=== PATIENT | female | born 1990 | race Caucasian/White ===

== ENCOUNTER 2016-11-26 11:27 | Emergency (ER) | payer SELFPAY ==
[2016-11-26] MEDS ORDERED: Sodium Chloride 0.9% 1,000 ML IV ONE (11:40)
[2016-11-26] MEDS ORDERED: Ondansetron 4 MG/2 ML SDV IVPUSH ONE (11:40)
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
[2016-11-26 12:27] LABS: CHLORIDE,CL 108 mmol/L (98-110); SODIUM,NA 140 mmol/L (136-146)
[2016-11-26 13:21] VITALS: BP 113/59
== END 2016-11-26 13:17 | disposition home or self-care (01) ==
LOC: MW.ED 11:27
DX: O21.9 Vomiting of pregnancy, unspecified (principal); Z3A.13 13 weeks gestation of pregnancy
CPT/HCPCS: 36415; 80053; 85025; 96361; 96374; 99284; J2405; J7040

== ENCOUNTER 2017-05-20 00:10 | Inpatient (IN) | payer MEDICAID ==
[2017-05-20] MEDS ORDERED: Methylergonovine 0.2 MG/1 ML Amp IM PRN (00:52)
[2017-05-20] MEDS ORDERED: Water For Irrigation,Sterile 1,000 ML Container IRR PRN (00:52)
[2017-05-20] MEDS ORDERED: Misoprostol 200 MCG Tab PO PRN (00:52)
[2017-05-20] MEDS ORDERED: Sodium Chloride 0.9% 10 ML Syringe FLUSH PRN (00:52)
[2017-05-20] MEDS ORDERED: Sodium Chloride 0.9% 2.5 ML Syringe FLUSH PRN (00:52)
[2017-05-20] MEDS ORDERED: Butorphanol 1 MG/ML SDV IVPUSH PRN (00:52)
[2017-05-20] MEDS ORDERED: Lidocaine 1% 50 ML MDV INJECT PRN (00:52)
[2017-05-20] MEDS ORDERED: Carboprost Tromethamine 250 MCG/1 ML Amp IM PRN (00:52)
[2017-05-20] MEDS ORDERED: Nalbuphine 10 MG/1 ML Vial IVPUSH PRN (00:52)
[2017-05-20] MEDS ORDERED: Oxytocin/0.9 % Sodium Chloride 30 UNIT/500 ML BAG IV SCH (01:00)
[2017-05-20] MEDS: Lactated Ringers 1,000 ML IV SCH ×3 (01:10→05:00)
[2017-05-20] MEDS ORDERED: fentaNYL 100 MCG/2 ML SDV ONE (01:40)
[2017-05-20] MEDS ORDERED: Ropivacaine HCl/PF 100 ML ONE (01:40)
[2017-05-20] MEDS ORDERED: Ropivacaine 0.2% 2 MG/ML 20 ML SDV ONE (01:40)
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
--- NOTE | 2017-05-20 03:29 | PCM.SN ---
- Free Text/Narrative Note: Requested fpr labor Epidural. . Previous epidurals without problems. History of significant spinal fusion with hardware. Currently anemic @ 8.0. Fluid bolus given. Procedure discussed. Understands risks benefits and problems. Dilated 6-7 cm. Discussed possible lack of effectiveness. Accepts. Procedure without issues. Block level ~ T8. Excellent pain control. 8cc/hr 6cc q10 bolus 24cc/hr max, Naropin 0.2% No problems 45 minutes post.
[2017-05-20] MEDS ORDERED: Ondansetron 4 MG/2 ML SDV IVPUSH PRN (06:36)
[2017-05-20] MEDS ORDERED: Docusate Sodium 100 MG Cap PO PRN (06:44)
[2017-05-20] MEDS ORDERED: Benzocaine/Menthol 20%-0.5% Spray 78 GM Cannister TOP PRN (06:44)
[2017-05-20] MEDS ORDERED: Bisacodyl 10 MG Supp RECTAL PRN (06:44)
[2017-05-20] MEDS ORDERED: Witch Hazel Medicated Pads 40/Jar TOP PRN (06:44)
[2017-05-20] MEDS ORDERED: Lanolin 100% Cream 7 GM Tube TOP PRN (06:44)
[2017-05-20] MEDS ORDERED: Ibuprofen 400 MG Tab PO PRN (06:44)
[2017-05-20] MEDS ORDERED: Acetaminophen 500 MG Tab PO PRN ×2 (06:44)
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
--- NOTE | 2017-05-20 09:30 | PCM48HPAN ---
Post Anesthesia Note - EVALUATION WITHIN 48HRS OF ANESTHETIC Vital Signs in Normal Range: Yes Patient Participated in Evaluation: Yes Respiratory Function Stable: Yes Airway Patent: Yes Cardiovascular Function Stable: Yes Hydration Status Stable: Yes Pain Control Satisfactory: Yes (Block more one sided.) Nausea and Vomiting Control Satisfactory: No Mental Status Recovered: Yes - COMMENTS/OBSERVATIONS Free Text/Narrative:: Block more one sided. Patient tolerated well. No problems post.
[2017-05-20] MEDS: Ibuprofen 800 MG Tab PO PRN (10:03)
[2017-05-20] MEDS: oxyCODONE 5 MG Tab PO PRN (20:39)
[2017-05-21] MEDS: oxyCODONE 5 MG Tab PO PRN ×3 (00:49→13:35)
--- NOTE | 2017-05-21 07:57 | PCM.PNPP ---
- General Info Date of Service: 05/21/17 Subjective Update: Patient is doing well overall--ambulating, voiding, lochia is minimal. Bottlefeeding. Would like to go home today. Functional Status: Reports: Pain Controlled, Tolerating Diet, Ambulating, Urinating - Review of Systems General: Denies: Fever, Weakness Cardiovascular: Denies: Palpitations, Lightheadedness Genitourinary: Denies: Flank Pain Psychiatric: Reports: No Symptoms - General Info Date of Service: 05/21/17 - Patient Data Vital Signs - Most Recent: Last Vital Signs Temp 36.2 C 05/21/17 04:17 Pulse 77 05/21/17 04:17 Resp 14 05/21/17 04:17 BP 106/51 L 05/21/17 04:17 Pulse Ox 96 05/21/17 04:17 Weight - Most Recent: 61.235 kg Lab Results - Last 24 Hours: Laboratory Results - last 24 hr 05/20/17 Range/Units 14:52 Hgb 8.1 L (12.0-16.0) g/dL Hct 26.9 L (36.0-46.0) % Med Orders - Current: Current Medications Acetaminophen (Tylenol Extra Strength) 500 mg PO Q4H PRN PRN Reason: Pain Acetaminophen (Tylenol Extra Strength) 1,000 mg PO Q4H PRN PRN Reason: Pain Benzocaine/Menthol (Dermoplast Pain Relief 20%-0.5% [place]) 78 gm TOP ASDIRECTED PRN PRN Reason: Perineal Comfort Measure Last Admin: 05/20/17 10:03 Dose: 1 canister Bisacodyl (Dulcolax) 10 mg RECTAL .ONCE PRN PRN Reason: Constipation Carboprost Tromethamine (Hemabate Ds) 250 mcg IM ASDIRECTED PRN PRN Reason: Post Hemorrhage Docusate Sodium (Colace) 100 mg PO BID PRN PRN Reason: Constipation Emollient Ointment (Lansinoh Hpa) 0 gm TOP ASDIRECTED PRN PRN Reason: Sore Nipples Last Admin: 05/20/17 10:02 Dose: 1 tube Lactated Ringer's (Ringers, Lactated) 1,000 mls @ 150 mls/hr IV ASDIRECTED SADI Last Admin: 05/20/17 05:00 Dose: 150 mls/hr Oxytocin/Sodium Chloride (Oxytocin 30 Unit/500 Ml-Ns) 30 unit in 500 mls @ 999 mls/hr IV TITRATE SADI Last Admin: 05/20/17 06:16 Dose: 999 mls/hr Ibuprofen (Motrin) 400 mg PO Q4H PRN PRN Reason: Pain Ibuprofen (Motrin) 800 mg PO Q6H PRN PRN Reason: Pain Last Admin: 05/20/17 10:03 Dose: 800 mg Methylergonovine Maleate (Methergine) 0.2 mg IM ASDIRECTED PRN PRN Reason: Post Hemorrhage Misoprostol (Cytotec) 200 mcg PO .ONCE PRN PRN Reason: Post Hemorrhage Ondansetron HCl (Zofran) 4 mg IVPUSH Q6H PRN PRN Reason: Nausea/Vomiting Last Admin: 05/20/17 06:50 Dose: 4 mg Oxycodone HCl (Oxycodone) 5 mg PO Q2H PRN PRN Reason: Pain Last Admin: 05/21/17 00:49 Dose: 5 mg Sodium Chloride (Saline Flush) 2.5 ml FLUSH ASDIRECTED PRN PRN Reason: Keep Vein Open Witch Georgette (Tucks) 1 pad TOP ASDIRECTED PRN PRN Reason: comfort care Last Admin: 05/20/17 10:02 Dose: 1 tub Discontinued Medications Butorphanol Tartrate (Stadol) 1 mg IVPUSH Q1H PRN PRN Reason: Pain Fentanyl (Sublimaze) Confirm Administered Dose 100 mcg .ROUTE .STK-MED ONE Stop: 05/20/17 01:41 Last Admin: 05/20/17 09:28 Dose: Not Given Ropivacaine (Naropin 0.2%) Confirm Administered Dose 100 mls @ as directed .ROUTE .STK-MED ONE Stop: 05/20/17 01:41 Last Admin: 05/20/17 09:28 Dose: Not Given Lidocaine HCl (Xylocaine 1%) 50 ml INJECT .ONCE PRN PRN Reason: Laceration repair Nalbuphine HCl (Nubain) 10 mg IVPUSH Q1H PRN PRN Reason: Pain (severe 7-10) Ropivacaine (Naropin 0.2%) Confirm Administered Dose 20 ml .ROUTE .STK-MED ONE Stop: 05/20/17 01:41 Last Admin: 05/20/17 09:28 Dose: Not Given Sodium Chloride (Saline Flush) 10 ml FLUSH ASDIRECTED PRN PRN Reason: Keep Vein Open Sterile Water (Sterile Water For Irrigation) 1,000 ml IRR ASDIRECTED PRN PRN Reason: delivery - Infant Interaction Support Person: Friend - Recovery Exam Fundal Tone: Firm Fundal Level: At Umbilicus Fundal Placement: Midline Lochia Amount: Scant Lochia Color: Rubra/Red Perineum Description: Intact, Minimal Bruising/Swelling Bladder Status: Voiding - Exam General: Alert, Oriented Lungs: Normal Respiratory Effort Cardiovascular: Regular Rate, Regular Rhythm GI/Abdominal Exam: Soft, Non-Tender Extremities: Normal Inspection Skin: Warm, Dry Psy/Mental Status: Normal Affect - Problem List & Annotations (1) (spontaneous vaginal delivery) SNOMED Code(s): 30670459 Code(s): O80 - ENCOUNTER FOR FULL-TERM UNCOMPLICATED DELIVERY Status: Acute Priority: Low Current Visit: No - Problem List Review Problem List Initiated/Reviewed/Updated: Yes - Assessment Assessment:: PPD 1 status post - Plan Plan:: Discharge to home today. Discharge instructions reviewed. Follow up at [facility] in 6 weeks. Infection and bleeding warnings reviewed.
[2017-05-21] MEDS: Ibuprofen 800 MG Tab PO PRN (09:35)
[2017-05-21 11:52] VITALS: BP 123/78
== END 2017-05-21 14:45 | disposition home or self-care (01) | DRG 775 ==
LOC: MW.OBCHECK 00:10 → MW.OB 00:14 → MW.OBCHECK 00:52 → OBSVTOIN 06:14 → MW.OB 11:07
PROVIDERS: ADMIT Obstetrics & Gynecology; ATTEND Obstetrics & Gynecology
PROC: 10E0XZZ Delivery of Products of Conception, External Approach (ICD-10-PCS; principal; 2017-05-20)
DX: O80 Encounter for full-term uncomplicated delivery (principal); Z3A.39 39 weeks gestation of pregnancy; Z37.0 Single live birth
CPT/HCPCS: 01967; 51702; 59025; 59409; 84112; 85014; 85018; 85027; 86850; 86900; 86901; A9270-GY; J2405; J2590; J7120

== ENCOUNTER 2018-09-18 09:04 | Emergency (ER) | payer MEDICAID ==
[2018-09-18] MEDS ORDERED: Ketorolac 60 MG/2 ML SDV IM ONE (09:30)
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
--- NOTE | 2018-09-18 10:10 | CR ---
EXAMINATION: Cervical spine HISTORY: Pain COMPARISON: 02/26/2018 TECHNIQUE: AP and lateral views FINDINGS: Mild straightening of the normal cervical lordosis likely positional. The vertebral body heights and disc spaces appear well-maintained. There is no fracture or acute osseous or metallic. Bone mineralization is normal. Prevertebral soft tissues are unremarkable. IMPRESSION: Grossly unremarkable cervical spine.
[2018-09-18 16:12] VITALS: BP 113/65
== END 2018-09-18 10:52 | disposition home or self-care (01) ==
LOC: MW.ED 09:04
DX: M54.2 Cervicalgia (principal); M54.9 Dorsalgia, unspecified; G89.29 Other chronic pain
CPT/HCPCS: 72040; 96372; 99283; J1885

== ENCOUNTER 2019-07-19 20:48 | Inpatient (IN) | payer MEDICAID ==
[2019-07-19] MEDS ORDERED: Sodium Chloride 0.9% 2.5 ML Syringe FLUSH PRN (21:14)
[2019-07-19] MEDS ORDERED: Carboprost Tromethamine 250 MCG/1 ML Amp IM PRN (21:14)
[2019-07-19] MEDS ORDERED: Methylergonovine 0.2 MG/1 ML Amp IM PRN (21:14)
[2019-07-19] MEDS ORDERED: Nalbuphine 10 MG/1 ML Vial IVPUSH PRN (21:14)
[2019-07-19] MEDS ORDERED: Sodium Chloride 0.9% 10 ML Syringe FLUSH PRN (21:14)
[2019-07-19] MEDS ORDERED: Lidocaine 1% 50 ML MDV INJECT PRN (21:14)
[2019-07-19] MEDS ORDERED: Water For Irrigation,Sterile 1,000 ML Container IRR PRN (21:14)
[2019-07-19] MEDS ORDERED: Butorphanol 1 MG/ML SDV IVPUSH PRN (21:14)
[2019-07-19] MEDS ORDERED: Misoprostol 200 MCG Tab PO PRN (21:14)
[2019-07-19] MEDS ORDERED: Sodium Chloride 0.9% 10 ML SDV IV PRN (21:14)
[2019-07-19] MEDS ORDERED: Tranexamic Acid 1,000 MG in Sodium Chloride 0.9% 100 ML IV PRN (21:14)
[2019-07-19] MEDS ORDERED: Oxytocin/0.9 % Sodium Chloride 30 UNIT/500 ML BAG IV SCH (21:15)
[2019-07-19] MEDS ORDERED: Lactated Ringers 1,000 ML IV SCH (21:15)
[2019-07-19] MEDS ORDERED: Bupivicaine/fentaNYL/NS 250 ML ONE (22:04)
[2019-07-19] MEDS ORDERED: fentaNYL 100 MCG/2 ML SDV ONE (22:05)
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
[2019-07-20] MEDS ORDERED: Ondansetron 4 MG/2 ML SDV IVPUSH PRN (00:16)
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
--- NOTE | 2019-07-20 02:12 | PCM.DEL ---
L & D Note - General Info Date of Service: 07/20/19 Mother's Due Date: 08/05/18 - Delivery Note Labor: Spontaneous Delivery Outcome: Livebirth Infant Delivery Method: Spontaneous Vaginal Delivery-Single Delivery Mode: Spontaneous Presentation: Vertex Nuchal Cord: None Anesthesia Type: Epidural Amniotic Fluid Description: Clear Episiotomy Type: None Laceration: None Placenta: Intact, Spontaneous Cord: 3 Vessels Score 1 min: 8 Score 5 min: 9 Second Stage Interventions: Reports: Pushing, Pulls Own Legs Back Delivery Comments (Free Text/Narrative):: of viable male, Head delivered with good pushing, shoulder and left arm followed easily. with spont cry placed on mothers abd with RN at for evaluation. Delayed cord blood. Pitocin to IVF. Cord clamped and cut. Cord blood collected. Placenta delivered grossly intact. Inspection noted intact perineum. EBL 200cc. APGARS 8/9, Wt: 6lb 11oz. Stable bonding well. - General Info Date of Service: 07/20/19 Admission Dx/Problem (Free Text): Patient Status Order with Admit Dx/Problem 07/19/19 21:14 Patient Status [ADT] Routine Admission Diagnosis/Problem Admission Diagnosis/Problem 07/20/19 01:57 29yo EDC 08/05/2018 37 5/7wks, A+, RI, GBS neg. Comes in active labor Functional Status: Reports: Pain Controlled - Review of Systems General: Reports: No Symptoms HEENT: Reports: No Symptoms Pulmonary: Reports: No Symptoms Cardiovascular: Reports: No Symptoms Gastrointestinal: Reports: No Symptoms Genitourinary: Reports: No Symptoms Musculoskeletal: Reports: No Symptoms Skin: Reports: No Symptoms Neurological: Reports: No Symptoms Psychiatric: Reports: No Symptoms - Patient Data Weight - Most Recent: 60.781 kg Lab Results Last 24 Hours: Laboratory Results - last 24 hr 07/19/19 07/19/19 Range/Units 21:21 21:21 WBC 7.04 (4.0-11.0) K/uL RBC 2.93 L (4.30-5.90) M/uL Hgb 7.4 L (12.0-16.0) g/dL Hct 24.9 L (36.0-46.0) % MCV 85.0 (80.0-98.0) fL MCH 25.3 L (27.0-32.0) pg MCHC 29.7 L (31.0-37.0) g/dL RDW Std Deviation 51.0 (28.0-62.0) fl RDW Coeff of Kelby 17 H (11.0-15.0) % Plt Count 178 (150-400) K/uL MPV 10.10 (7.40-12.00) fL Nucleated RBC % 1.2 /100WBC Nucleated RBCs # 0 K/uL Blood Type A POSITIVE Antibody Screen NEGATIVE Med Orders - Current: Current Medications Butorphanol Tartrate (Stadol) 1 mg IVPUSH Q1H PRN PRN Reason: Pain Carboprost Tromethamine (Hemabate Ds) 250 mcg IM ASDIRECTED PRN PRN Reason: Post Hemorrhage Lactated Ringer's (Ringers, Lactated) 1,000 mls @ 150 mls/hr IV ASDIRECTED SADI Last Admin: 07/19/19 21:24 Dose: 150 mls/hr Oxytocin/Sodium Chloride (Oxytocin 30 Unit/500 Ml-Ns) 30 unit in 500 mls @ 999 mls/hr IV TITRATE SADI Last Admin: 07/20/19 01:35 Dose: 999 mls/hr Tranexamic Acid 1,000 mg/ (Sodium Chloride) 110 mls @ 660 mls/hr IV ONETIME PRN PRN Reason: Bleeding Lidocaine HCl (Xylocaine 1%) 50 ml INJECT ONETIME PRN PRN Reason: Laceration repair Methylergonovine Maleate (Methergine) 0.2 mg IM ASDIRECTED PRN PRN Reason: Post Hemorrhage Misoprostol (Cytotec) 200 mcg PO ONETIME PRN PRN Reason: Post Hemorrhage Nalbuphine HCl (Nubain) 10 mg IVPUSH Q1H PRN PRN Reason: Pain (severe 7-10) Ondansetron HCl (Zofran) 4 mg IVPUSH Q4H PRN PRN Reason: Nausea Last Admin: 07/20/19 00:30 Dose: 4 mg Sodium Chloride (Saline Flush) 10 ml FLUSH ASDIRECTED PRN PRN Reason: Keep Vein Open Sodium Chloride (Saline Flush) 2.5 ml FLUSH ASDIRECTED PRN PRN Reason: Keep Vein Open Sodium Chloride (Normal Saline) 10 ml IV ASDIRECTED PRN PRN Reason: IV Use Sterile Water (Sterile Water For Irrigation) 1,000 ml IRR ASDIRECTED PRN PRN Reason: delivery Discontinued Medications Fentanyl (Sublimaze) Confirm Administered Dose 100 mcg .ROUTE .STK-MED ONE Stop: 07/19/19 22:06 Fentanyl/Bupivacaine HCl (Fentanyl/Bupivacaine/Ns 2 Mcg-0.125% 250 Ml) Confirm Administered Dose 250 mls @ as directed .ROUTE .STK-MED ONE Stop: 07/19/19 22:05 - Exam General: Alert, Oriented, Cooperative, No Acute Distress Lungs: Normal Respiratory Effort GI/Abdominal Exam: Soft, Non-Tender (Female) Exam: Normal External Exam, Normal Bimanual Exam, Vaginal Bleeding Back Exam: Normal Inspection Extremities: Normal Inspection, Non-Tender, No Pedal Edema Skin: Warm, Dry, Intact Neurological: No New Focal Deficit, Normal Tone Psy/Mental Status: Alert, Normal Affect, Normal Mood - Problem List & Annotations (1) Supervision of normal IUP (intrauterine ) in multigravida SNOMED Code(s): 696167563, 576518039, 195589778 Code(s): Z34.80 - ENCOUNTER FOR SUPRVSN OF NORMAL , UNSP TRIMESTER Status: Acute Priority: High Current Visit: Yes Qualifiers: Trimester: third trimester Qualified Code(s): Z34.83 - Encounter for supervision of other normal , third trimester (2) Anemia affecting fifth SNOMED Code(s): 14470115 Code(s): O99.019 - ANEMIA COMPLICATING , UNSPECIFIED TRIMESTER; O09.40 - SUPERVISION OF W GRAND MULTIPARITY, UNSP TRIMESTER Status: Acute Priority: High Current Visit: Yes (3) (normal spontaneous vaginal delivery) SNOMED Code(s): 58146714, 383212376 Code(s): O80 - ENCOUNTER FOR FULL-TERM UNCOMPLICATED DELIVERY Status: Acute Priority: High Current Visit: Yes - Problem List Review Problem List Initiated/Reviewed/Updated: Yes - Plan Plan:: Admit A: 29yo EDC 08/05/2018 37 5/7wks, A+, RI, GBS neg. Comes in active labor P: Admit, epidural, anticipate . Dr Godfrey updated Delivery A: of viable male, APGARS 8/9, WT: 6lb 11oz. Intact perineum, EBL 200cc. Mother and baby stable bonding well in recovery P: Routine pp plan of care
[2019-07-20] MEDS ORDERED: Docusate Sodium 100 MG Cap PO PRN (02:14)
[2019-07-20] MEDS ORDERED: Benzocaine/Menthol 20%-0.5% Spray 78 GM Cannister TOP PRN (02:14)
[2019-07-20] MEDS ORDERED: Lanolin 100% Cream 7 GM Tube TOP PRN (02:14)
[2019-07-20] MEDS ORDERED: Acetaminophen 500 MG Tab PO PRN ×2 (02:14)
[2019-07-20] MEDS ORDERED: Witch Hazel Medicated Pads 40/Jar TOP PRN (02:14)
[2019-07-20] MEDS ORDERED: Bisacodyl 10 MG Supp RECTAL PRN (02:14)
[2019-07-20] MEDS ORDERED: Ibuprofen 400 MG Tab PO PRN (02:14)
[2019-07-20] MEDS: Ibuprofen 800 MG Tab PO PRN ×2 (05:23→17:27)
--- NOTE | 2019-07-20 11:24 | PCM.POSTAN ---
POST ANESTHESIA ASSESSMENT - MENTAL STATUS Mental Status: Alert - VITAL SIGNS Vital Signs: Last Vital Signs Temp Pulse 62 07/20/19 08:20 Resp 16 07/20/19 08:20 BP 104/59 L 07/20/19 08:20 Pulse Ox 95 07/20/19 08:20 - RESPIRATORY Respiratory Status: Respiratory Rate WNL - CARDIOVASCULAR CV Status: Pulse Rate WNL - GASTROINTESTINAL GI Status: No Symptoms - POST OP HYDRATION Hydration Status: Adequate & Stable
--- NOTE | 2019-07-20 11:25 | PCM48HPAN ---
Post Anesthesia Note - EVALUATION WITHIN 48HRS OF ANESTHETIC Vital Signs in Normal Range: Yes Patient Participated in Evaluation: Yes Respiratory Function Stable: Yes Airway Patent: Yes Cardiovascular Function Stable: Yes Hydration Status Stable: Yes Pain Control Satisfactory: Yes Nausea and Vomiting Control Satisfactory: Yes Mental Status Recovered: Yes Vital Signs: Last Vital Signs Temp Pulse 62 07/20/19 08:20 Resp 16 07/20/19 08:20 BP 104/59 L 07/20/19 08:20 Pulse Ox 95 07/20/19 08:20
[2019-07-20] MEDS: oxyCODONE 5 MG Tab PO PRN ×2 (18:33→23:16)
--- NOTE | 2019-07-21 07:31 | PCM.PNPP ---
- General Info Date of Service: 07/21/19 Functional Status: Reports: Pain Controlled, Tolerating Diet, Ambulating, Urinating - Review of Systems General: Reports: No Symptoms HEENT: Reports: No Symptoms Pulmonary: Reports: No Symptoms Cardiovascular: Reports: No Symptoms Gastrointestinal: Reports: No Symptoms Genitourinary: Reports: No Symptoms Musculoskeletal: Reports: No Symptoms Skin: Reports: No Symptoms Neurological: Reports: No Symptoms Psychiatric: Reports: No Symptoms - Patient Data Vital Signs - Most Recent: Last Vital Signs Temp 36.3 C 07/21/19 04:20 Pulse 76 07/21/19 04:20 Resp 17 07/21/19 04:20 BP 106/53 L 07/21/19 04:20 Pulse Ox 96 07/21/19 04:20 Weight - Most Recent: 60.781 kg Med Orders - Current: Current Medications Acetaminophen (Tylenol Extra Strength) 500 mg PO Q4H PRN PRN Reason: Pain Acetaminophen (Tylenol Extra Strength) 1,000 mg PO Q4H PRN PRN Reason: Pain Last Admin: 07/20/19 09:37 Dose: 1,000 mg Benzocaine/Menthol (Dermoplast Pain Relief 20%-0.5% [place]) 78 gm TOP ASDIRECTED PRN PRN Reason: Perineal Comfort Measure Bisacodyl (Dulcolax) 10 mg RECTAL ONETIME PRN PRN Reason: Constipation Docusate Sodium (Colace) 100 mg PO BID PRN PRN Reason: Constipation Emollient Ointment (Lansinoh Hpa) 0 gm TOP ASDIRECTED PRN PRN Reason: Sore Nipples Ibuprofen (Motrin) 400 mg PO Q4H PRN PRN Reason: Pain Ibuprofen (Motrin) 800 mg PO Q6H PRN PRN Reason: Pain Last Admin: 07/20/19 17:27 Dose: 800 mg Oxycodone HCl (Oxycodone) 5 mg PO Q2H PRN PRN Reason: Pain Last Admin: 07/20/19 23:16 Dose: 5 mg Witch Georgette (Tucks) 1 pad TOP ASDIRECTED PRN PRN Reason: comfort care Discontinued Medications Butorphanol Tartrate (Stadol) 1 mg IVPUSH Q1H PRN PRN Reason: Pain Carboprost Tromethamine (Hemabate Ds) 250 mcg IM ASDIRECTED PRN PRN Reason: Post Hemorrhage Fentanyl (Sublimaze) Confirm Administered Dose 100 mcg .ROUTE .STK-MED ONE Stop: 07/19/19 22:06 Lactated Ringer's (Ringers, Lactated) 1,000 mls @ 150 mls/hr IV ASDIRECTED SADI Last Admin: 07/19/19 21:24 Dose: 150 mls/hr Oxytocin/Sodium Chloride (Oxytocin 30 Unit/500 Ml-Ns) 30 unit in 500 mls @ 999 mls/hr IV TITRATE SADI Last Admin: 07/20/19 01:35 Dose: 999 mls/hr Tranexamic Acid 1,000 mg/ (Sodium Chloride) 110 mls @ 660 mls/hr IV ONETIME PRN PRN Reason: Bleeding Fentanyl/Bupivacaine HCl (Fentanyl/Bupivacaine/Ns 2 Mcg-0.125% 250 Ml) Confirm Administered Dose 250 mls @ as directed .ROUTE .[place] ONE Stop: 07/19/19 22:05 Lidocaine HCl (Xylocaine 1%) 50 ml INJECT ONETIME PRN PRN Reason: Laceration repair Methylergonovine Maleate (Methergine) 0.2 mg IM ASDIRECTED PRN PRN Reason: Post Hemorrhage Misoprostol (Cytotec) 200 mcg PO ONETIME PRN PRN Reason: Post Hemorrhage Nalbuphine HCl (Nubain) 10 mg IVPUSH Q1H PRN PRN Reason: Pain (severe 7-10) Ondansetron HCl (Zofran) 4 mg IVPUSH Q4H PRN PRN Reason: Nausea Last Admin: 07/20/19 00:30 Dose: 4 mg Sodium Chloride (Saline Flush) 10 ml FLUSH ASDIRECTED PRN PRN Reason: Keep Vein Open Sodium Chloride (Saline Flush) 2.5 ml FLUSH ASDIRECTED PRN PRN Reason: Keep Vein Open Sodium Chloride (Normal Saline) 10 ml IV ASDIRECTED PRN PRN Reason: IV Use Sterile Water (Sterile Water For Irrigation) 1,000 ml IRR ASDIRECTED PRN PRN Reason: delivery - Interaction Disposition, : in Room with Family Interaction: Holding Infant Feeding: Breastfed Infant; Nursed Well Support Person: Significant Other - Recovery Exam Fundal Tone: Firm Fundal Level: 1 Fingerbreadths Below Umbilicus Fundal Placement: Midline Lochia Amount: Scant Lochia Color: Rubra/Red Perineum Description: Intact, Minimal Bruising/Swelling Episiotomy/Laceration: None Bladder Status: Voiding - Exam General: Alert, Oriented Neck: Supple Lungs: Normal Respiratory Effort GI/Abdominal Exam: Soft, Non-Tender, No Distention Skin: Warm, Dry, Intact Neurological: No New Focal Deficit Psy/Mental Status: Alert, Normal Affect, Normal Mood - Problem List & Annotations (1) (normal spontaneous vaginal delivery) SNOMED Code(s): 96159858, 611688861 Code(s): O80 - ENCOUNTER FOR FULL-TERM UNCOMPLICATED DELIVERY Status: Acute Priority: High Current Visit: Yes - Problem List Review Problem List Initiated/Reviewed/Updated: Yes - My Orders Last 24 Hours: My Active Orders 07/21/19 07:12 HEMOGLOBIN/HEMATOCRIT,HH [HEME] Routine - Assessment Assessment:: PPD#1 after , stable minimal lochia. Has not been up yet today. Denies dizziness or shortness of breath. - Plan Plan:: Discharge instructions reviewed. She has chronic anemia, will check hemoglobin. Discussed importance of scheduled iron therapy. Also continue vitamins while .
[2019-07-21] MEDS: oxyCODONE 5 MG Tab PO PRN (09:08)
[2019-07-21 10:44] VITALS: BP 115/61; PULSE 81
== END 2019-07-21 11:30 | disposition home or self-care (01) | DRG 807 ==
LOC: MW.OBCHECK 20:48 → MW.OB 20:50 → MW.OBCHECK 20:50 → MW.OB 20:57 → OBSVTOIN 07-20 01:34 → MW.OB 07-20 06:17
PROVIDERS: ADMIT Obstetrics & Gynecology; ATTEND Obstetrics & Gynecology
PROC: 10E0XZZ Delivery of Products of Conception, External Approach (ICD-10-PCS; principal; 2019-07-20)
DX: O99.02 Anemia complicating childbirth (principal); Z37.0 Single live birth; D64.9 Anemia, unspecified; Z3A.37 37 weeks gestation of pregnancy
CPT/HCPCS: 36415; 51702; 59025; 59409; 85014; 85018; 85027; 86593; 86850; 86900; 86901; A9270-GY; J2405; J2590; J3010; J7120

== ENCOUNTER 2019-08-29 14:50 | Emergency (ER) | payer MEDICAID ==
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
[2019-08-29] MEDS ORDERED: Ibuprofen 800 MG Tab PO ONE (15:40)
[2019-08-29] MEDS ORDERED: Sodium Chloride 0.9% 1,000 ML IV ONE (15:55)
[2019-08-29] MEDS ORDERED: Cephalexin 500 MG Cap PO ONE (16:19)
[2019-08-29 16:41] LABS: BLOOD UREA NITROGEN,BUN 10 mg/dL (7.0-18.0); CARBON DIOXIDE,CO2 23.9 mmol/L (21.0-32.0); CHLORIDE,CL 101 mmol/L (98-107); GLUCOSE RANDOM 100 mg/dL (74-106); POTASSIUM,K 3.7 mmol/L (3.5-5.1); SODIUM,NA 137 mmol/L (136-145)
[2019-08-29 17:28] VITALS: BP 116/67; PULSE 92
== END 2019-08-29 18:23 | disposition home or self-care (01) ==
LOC: MW.ED 14:50
DX: O91.22 Nonpurulent mastitis associated with the puerperium (principal); O90.81 Anemia of the puerperium
CPT/HCPCS: 36415; 80053; 81001; 85025; 87081; 87804; 87880; 96360; 99283; A9270; J7030

== ENCOUNTER 2020-05-19 21:19 | Emergency (ER) | payer MEDICAID ==
[2020-05-19] MEDS ORDERED: Thiamine 100 MG in Sodium Chloride 0.9% 100 ML IV ONE (21:41)
[2020-05-19] MEDS ORDERED: Prochlorperazine 10 MG/2 ML SDV IVPUSH ONE (21:41)
[2020-05-19] MEDS ORDERED: Vitamin B6-pyridOXINE 100 MG/ML SDV ONE (21:43)
[2020-05-19] MEDS ORDERED: Lactated Ringers 1,000 ML IV ONE ×2 (21:51→21:52)
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
[2020-05-19 23:18] LABS: BLOOD UREA NITROGEN,BUN 7 mg/dL (7.0-18.0); CARBON DIOXIDE,CO2 22.3 mmol/L (21.0-32.0); CHLORIDE,CL 99 mmol/L (98-107); GLUCOSE RANDOM 84 mg/dL (74-106); POTASSIUM,K 3.2 mmol/L (3.5-5.1); SODIUM,NA 135 mmol/L (136-145)
[2020-05-19] MEDS ORDERED: diphenhydrAMINE 50 MG/ML SDV IVPUSH ONE (23:22)
[2020-05-19] MEDS ORDERED: diphenhydrAMINE 50 MG/ML SDV ONE (23:24)
[2020-05-19] MEDS ORDERED: Nitrofurantoin Monohydrate/Macrocrystalline 100 MG Cap PO ONE (23:45)
[2020-05-20 00:36] VITALS: BP 125/73
[2020-05-20 04:31] VITALS: PULSE 84
== END 2020-05-20 00:45 | disposition home or self-care (01) ==
LOC: MW.ED 21:19
DX: O21.0 Mild hyperemesis gravidarum (principal); Z3A.01 Less than 8 weeks gestation of pregnancy
CPT/HCPCS: 36415; 80053; 81001; 82009; 84439; 84443; 84702; 85025; 96365; 96375; 99284; A9270; J0780; J1200; J3411; J7120; 99283

== ENCOUNTER 2022-06-01 16:25 | Emergency (ER) | payer MEDICAID ==
[2022-06-01] MEDS ORDERED: Ibuprofen 600 MG Tab PO ONE (19:39)
[2022-06-01 20:04] VITALS: BP 121/90; PULSE 90
== END 2022-06-01 20:00 | disposition home or self-care (01) ==
LOC: MW.ED 16:25
DX: S90.31XA Contusion of right foot, initial encounter (principal); W20.8XXA Other cause of strike by thrown, projected or falling object, initial encounter
CPT/HCPCS: 73630-26-RT; 73630-RT; 99283